=== PATIENT | female | born 1990 | race Caucasian/White ===

== ENCOUNTER 2018-09-13 14:50 | Emergency (ER) | payer BC, SELFPAY ==
[2018-09-13 15:33] LABS: Bilirubin Negative (Negative); Blood, Urine Negative (Negative); Clarity Clear (Clear); Glucose, Urine (Dipstick) Negative (Negative); Leukocyte Negative (Negative); Nitrite Negative (Negative); Protein, Urine (Dipstick) Negative (Neg-Trace); pH, Urine 7.5 (5.0-9.0)
[2018-09-13 15:34] LABS: Pregnancy Test - Urine (BHCG) POSITIVE (Negative)
[2018-09-13 15:35] LABS: Pregu Control Background? CLEAR/WHITE (CLR/WHITE); Pregu Control Bar Appear? YES (CONTROL BAR)
== END 2018-09-13 15:46 | disposition left against medical advice (07) ==
LOC: SCSER 14:50
DX: Z53.21 Procedure and treatment not carried out due to patient leaving prior to being seen by health care provider (principal)
CPT/HCPCS: 81003; 81025

== ENCOUNTER 2018-09-14 09:53 | Emergency (ER) | payer BC, SELFPAY ==
[2018-09-14 10:44] LABS: #Basophils 0.1 thou/uL (0.0-0.2); #Eosinphils 0.1 thou/uL (0.0-0.7); #Lymphocytes 1.9 thou/uL (1.20-3.40); #Monocytes 0.6 thou/uL (0.11-0.59); #Neutrophils 4.4 thou/uL (1.40-6.50); %Basophils 1.1 % (0.0-1.0); %Eosinophils 1.7 % (0.0-10.0); %Lymphocytes 26.7 % (21.0-51.0); %Monocytes 8.5 % (0.0-10.0); %Neutrophils 61.9 % (42.0-75.0); Hemoglobin 12.8 g/dL (12.0-16.0); Mean Corpuscular HGB CONC 34.7 g/dL (32.0-36.0); Mean Corpuscular Hemoglobin 32.1 pg (27.0-31.0); Mean Corpuscular Volume 92.4 fL (78.0-98.0); Mean Platelet Volume 7.7 fL (7.4-10.4); Platelet Count 289 thou/uL (130-400); RBC Distribution Width 11.6 % (11.5-14.5)
[2018-09-14 10:49] LABS: Bilirubin Negative (Negative); Blood, Urine Negative (Negative); Clarity Hazy (Clear); Glucose, Urine (Dipstick) Negative (Negative); Leukocyte Large (Negative); Nitrite Negative (Negative); Protein, Urine (Dipstick) Negative (Neg-Trace); Specific Gravity, Urine 1.025 (1.005-1.030); pH, Urine 5.5 (5.0-9.0)
[2018-09-14 10:55] LABS: Bacteria/HPF 3+ HPF (None Seen); Squamous Epithelial 21-50 HPF (0-3); WBC/HPF 21-50 HPF (0-3)
[2018-09-14 10:55] LABS: ALT (SGPT) 11 U/L (8-55); AST (SGOT) 15 U/L (5-34); Albumin 4.1 g/dL (3.5-5.0); Alkaline Phosphatase 55 U/L (40-150); Anion Gap 13 mmol/L (10-20); BUN (Urea Nitrogen) 9 mg/dL (7.0-18.7); Bilirubin, Total 0.5 mg/dL (0.2-1.2); Calc. Creatinine Clearance 0 mL/min (70-130); Calcium 9.1 mg/dL (7.8-10.44); Carbon Dioxide 20 mmol/L (22-29); Chloride 109 mmol/L (98-107); Estimated GFR-MDRD Greater than 90; Glucose 83 mg/dL (70-105); Potassium 3.4 mmol/L (3.5-5.1); Protein, Total 7.1 g/dL (6.0-8.3); Sodium 139 mmol/L (136-145)
--- NOTE | 2018-09-14 12:04 | ULT ---
PELVIC ULTRASOUND: Date; 09/14/18 HISTORY: Pelvic pain, positive beta HCG level of 461.5. FINDINGS: Multiple transabdominal and endovaginal sonographic images of the pelvis are obtained. The uterus demonstrates a normal sonographic appearance and measures 8.0 cm x 6.6 cm x 5.5 cm. The en dometrial stripe measures 1.9 cm in thickness. There is questionable very tiny anechoic area seen wit hin the endometrial canal, but this cannot be definitively determined to represent a gestational sac at this time. Endometrium is thickened for patient's age. The ovaries demonstrate a normal sonographic appearance bilaterally with the right ovary measuring 3 .1 cm x 2.8 cm x 1.7 cm, and the left ovary measures 3.1 cm x 2.5 cm x 1.6 cm. Doppler evaluation of each ovary with spectral analysis and color flow evaluation demonstrates arteri al flow in each ovary. There is evidence of a small amount of free fluid within the right adnexal region and adjacent to the right ovary. No adnexal mass is appreciated. IMPRESSION: 1. Thickened endometrium, but no definitive fluid collection is seen to suggest intrauterine gestati on at this time. Ectopic cannot be excluded based on this examination, but findings may be related to a very early intrauterine gestation. Continued follow-up pelvic ultrasound, as well as be ta HCG levels is recommended. 2. Free fluid in the right adnexal region. POS: [facility]
[2018-09-17 03:07] LABS: Chlamydia by PCR Not Detected (NotDetected); GC by PCR Not Detected (NotDetected)
== END 2018-09-14 12:55 | disposition home or self-care (01) ==
LOC: SCSER 09:53
DX: N30.00 Acute cystitis without hematuria (principal)
CPT/HCPCS: 76856; 80053; 81003; 81015; 84702; 85025; 87086; 87480; 87491; 87510; 87591; 87660

== ENCOUNTER 2018-09-17 18:29 | Emergency (ER) | payer SELFPAY | END 2018-09-17 19:06 | disposition home or self-care (01) | LOC: SCSER 18:29 | DX: J06.9 Acute upper respiratory infection, unspecified (principal) | CPT/HCPCS: 99281 ==

== ENCOUNTER 2018-09-22 17:20 | Emergency (ER) | payer SELFPAY | END 2018-09-22 19:47 | disposition home or self-care (01) | LOC: ERS 17:20 | DX: R04.0 Epistaxis (principal) | CPT/HCPCS: 99283 ==

== ENCOUNTER 2018-10-15 17:32 | Emergency (ER) | payer SELFPAY ==
[2018-10-15 18:10] LABS: #Basophils 0.1 thou/uL (0.0-0.2); #Lymphocytes 1.5 thou/uL (1.20-3.40); #Monocytes 0.4 thou/uL (0.11-0.59); #Neutrophils 5.9 thou/uL (1.40-6.50); %Basophils 0.8 % (0.0-1.0); %Eosinophils 0.4 % (0.0-10.0); %Lymphocytes 19.1 % (21.0-51.0); %Monocytes 4.9 % (0.0-10.0); %Neutrophils 74.8 % (42.0-75.0); Hemoglobin 12.2 g/dL (12.0-16.0); Mean Corpuscular HGB CONC 33.7 g/dL (32.0-36.0); Mean Corpuscular Hemoglobin 30.9 pg (27.0-31.0); Mean Corpuscular Volume 91.6 fL (78.0-98.0); Mean Platelet Volume 6.7 fL (7.4-10.4); Platelet Count 296 thou/uL (130-400); RBC Distribution Width 11.5 % (11.5-14.5); Red Blood Cell (RBC) Count 3.96 mill/uL (4.20-5.40); White Blood Cell (WBC) Count 7.9 thou/uL (4.8-10.8)
[2018-10-15] MEDS ORDERED: Metoclopramide HCl 10 MG/2 ML VIAL ONE (18:19)
[2018-10-15 18:25] LABS: ALT (SGPT) 12 U/L (8-55); AST (SGOT) 14 U/L (5-34); Albumin 4.1 g/dL (3.5-5.0); Alkaline Phosphatase 39 U/L (40-150); Anion Gap 12 mmol/L (10-20); BUN (Urea Nitrogen) 8 mg/dL (7.0-18.7); Bilirubin, Total 0.4 mg/dL (0.2-1.2); Calc. Creatinine Clearance 0 mL/min (70-130); Calcium 9.3 mg/dL (7.8-10.44); Carbon Dioxide 25 mmol/L (22-29); Chloride 105 mmol/L (98-107); Estimated GFR-MDRD Greater than 90; Globulin 3.2 g/dL (2.4-3.5); Glucose 92 mg/dL (70-105); Lipase 11 U/L (8-78); Potassium 3.9 mmol/L (3.5-5.1); Protein, Total 7.3 g/dL (6.0-8.3); Sodium 138 mmol/L (136-145)
[2018-10-15 18:37] LABS: Bilirubin Negative (Negative); Blood, Urine Negative (Negative); Glucose, Urine (Dipstick) Negative (Negative); Leukocyte Small (Negative); Nitrite Negative (Negative); Protein, Urine (Dipstick) Negative (Neg-Trace); Specific Gravity, Urine 1.015 (1.005-1.030); Urobilinogen 0.2 mg/dL (0.2-1.0); pH, Urine 7.5 (5.0-9.0)
[2018-10-15 18:44] LABS: Clarity Hazy (Clear)
[2018-10-15 18:45] LABS: Bacteria/HPF 1+ HPF (None Seen); RBC/HPF None Seen HPF (0-3)
[2018-10-15 18:46] LABS: Amphetamine Not Detected (NotDetected); Barbiturates Screen Not Detected (NotDetected); Benzodiazepine Screen Not Detected (NotDetected); Cocaine Metabolite Screen Not Detected (NotDetected); Medtox Control Line Valid? VALID (VALID); Methadone Not Detected (NotDetected); Methamphetamine Not Detected (NotDetected); Opiate Screen Not Detected (NotDetected); Oxycodone Screen Not Detected (NotDetected); Phencyclidine (PCP) Not Detected (NotDetected); THC/Cannabinoid Screen Not Detected (NotDetected); Tricyclic Screen Not Detected (NotDetected)
--- NOTE | 2018-10-15 21:16 | ULT ---
ULTRASOUND PELVIC WITH DOPPLER: 10/15/18 HISTORY: Pelvic pain. COMPARISON: Pelvic ultrasound 09/14/18. FINDINGS: Real time rosas scale, color doppler and spectral analysis of the pelvis was performed transabdominal approach. Mild dilatation of the arcuate vessels. The ovaries are normal with adequate vascular flow . There is a single viable intrauterine with heart rate documented at 175 beats per minute with average ultrasound age of 9 week, 2 day. Estimated date of delivery 05/18/19. There is a 2.2 cm subchorionic hemorrhage. The gestational sac appears normal as well as the pole. IMPRESSION: Single viable intrauterine with average ultrasound age of 9 week, 2 day. Estimated date of delivery 05/18/19 with small subchorionic hemorrhage. POS: [facility]
== END 2018-10-15 20:03 | disposition home or self-care (01) ==
LOC: SCSER 17:32
DX: O21.9 Vomiting of pregnancy, unspecified (principal); O23.41 Unspecified infection of urinary tract in pregnancy, first trimester; Z3A.09 9 weeks gestation of pregnancy
CPT/HCPCS: 36415; 76856; 80053; 80306; 81003; 81015; 83690; 85025; 93976; 96361; 96374; J2765

== ENCOUNTER 2018-11-27 18:33 | Emergency (ER) | payer MEDICAID ==
[2018-11-27 19:11] LABS: #Lymphocytes 1.9 thou/uL (1.20-3.40); #Monocytes 0.5 thou/uL (0.11-0.59); #Neutrophils 6.6 thou/uL (1.40-6.50); %Basophils 0.5 % (0.0-1.0); %Eosinophils 0.4 % (0.0-10.0); %Lymphocytes 20.7 % (21.0-51.0); %Monocytes 5.6 % (0.0-10.0); %Neutrophils 72.8 % (42.0-75.0); Hemoglobin 10.4 g/dL (12.0-16.0); Mean Corpuscular HGB CONC 35.5 g/dL (32.0-36.0); Mean Corpuscular Hemoglobin 32.2 pg (27.0-31.0); Mean Corpuscular Volume 90.6 fL (78.0-98.0); Mean Platelet Volume 6.3 fL (7.4-10.4); Platelet Count 285 thou/uL (130-400); RBC Distribution Width 12.6 % (11.5-14.5); Red Blood Cell (RBC) Count 3.22 mill/uL (4.20-5.40)
[2018-11-27 19:12] LABS: Bilirubin Negative (Negative); Blood, Urine Negative (Negative); Glucose, Urine (Dipstick) Negative (Negative); Leukocyte Moderate (Negative); Nitrite Negative (Negative); Protein, Urine (Dipstick) Negative (Neg-Trace); Urobilinogen 0.2 mg/dL (0.2-1.0)
[2018-11-27 19:23] LABS: ALT (SGPT) 11 U/L (8-55); AST (SGOT) 12 U/L (5-34); Albumin 3.5 g/dL (3.5-5.0); Alkaline Phosphatase 35 U/L (40-150); Anion Gap 13 mmol/L (10-20); BUN (Urea Nitrogen) 10 mg/dL (7.0-18.7); Bilirubin, Total 0.2 mg/dL (0.2-1.2); Calc. Creatinine Clearance 0 mL/min (70-130); Calcium 8.6 mg/dL (7.8-10.44); Carbon Dioxide 23 mmol/L (22-29); Chloride 106 mmol/L (98-107); Estimated GFR-MDRD Greater than 90; Globulin 2.8 g/dL (2.4-3.5); Glucose 82 mg/dL (70-105); Potassium 3.6 mmol/L (3.5-5.1); Protein, Total 6.3 g/dL (6.0-8.3); Sodium 138 mmol/L (136-145)
[2018-11-27 19:27] LABS: Clarity Hazy (Clear)
[2018-11-27 19:28] LABS: RBC/HPF None Seen HPF (0-3)
[2018-11-27 19:29] LABS: Bacteria/HPF 1+ HPF (None Seen)
== END 2018-11-27 21:40 | disposition home or self-care (01) ==
LOC: SCSER 18:33
DX: O99.89 Other specified diseases and conditions complicating pregnancy, childbirth and the puerperium (principal); R10.30 Lower abdominal pain, unspecified; Z3A.14 14 weeks gestation of pregnancy
CPT/HCPCS: 36415; 80053; 81003; 81015; 84702; 85025; 87086

== ENCOUNTER 2019-01-08 13:55 | Outpatient (CLI) | payer MEDICAID ==
--- NOTE | 2019-01-08 15:43 | ULT ---
ULTRASOUND OBSTETRICAL COMPLETE: 01/08/19 HISTORY: Z34.82, encounter for supervision of other normal , second trimester. Complete anatomy/size and dates. 28-year-old female. FINDINGS: number: Rinaldi. lie: Cephalic. Maternal cervix: 2.5 cm and closed. Placenta: Posterior. No placenta previa. Amniotic fluid volume: ESEQUIEL 12 cm. heart rate: Highly variable, 65-184 bpm The following anatomy is visualized, with no evidence of anomalies: Head, lateral ventricles, cerebellum, nose and lips, spine, upper limbs, lower limbs, four chamber he art, umbilical cord, cord insertion, stomach, kidneys, and bladder. biometry: Head circumference (HC): 18.7 cm 21w 0d Biparietal diameter (BPD): 4.9 cm 20w 5d Abdominal circumference (AC): 14.7 cm 20w 0d Femur length (FL): 3.5 cm 21w 1d Average ultrasound age (AUA): 20w 5d Estimated date of delivery (MELISSA): 05/23/2019. Last menstrual period (LMP): 08/10/2018. Gestational age by LMP: 21w 4d Estimated weight (EFW): 362 g +/- 53 g. (0 lb. 13 oz +/- 2 oz). IMPRESSION: 1. Live second trimester intrauterine gestation. 2. Estimated gestational age of 20 weeks, 5 days. 3. Cephalic lie. 4. No anatomical abnormalities. 5. Highly variable heart rate from 65 to 184 bpm. Recommend follow-up. jazmin [] POS: [facility]
== END 2019-01-08 13:56 | disposition home or self-care (01) ==
LOC: BICULT 13:55
PROVIDERS: ATTEND Family Medicine
DX: Z34.82 Encounter for supervision of other normal pregnancy, second trimester (principal); Z3A.20 20 weeks gestation of pregnancy
CPT/HCPCS: 76805

== ENCOUNTER 2019-02-06 21:32 | Emergency (ER) | payer OTHER ==
[2019-02-06 22:42] LABS: Bilirubin Negative (Negative); Blood, Urine Negative (Negative); Clarity Clear (Clear); Glucose, Urine (Dipstick) Negative (Negative); Leukocyte Trace (Negative); Nitrite Negative (Negative); Protein, Urine (Dipstick) Negative (Neg-Trace); Urobilinogen 0.2 mg/dL (Less than 2)
[2019-02-06 22:59] LABS: RBC/HPF 0-3 HPF (0-3)
[2019-02-06 23:00] LABS: Bacteria/HPF Rare-Few HPF (None Seen); Squamous Epithelial 0-3 HPF (0-3); Transitional Epithelial 0-3 HPF (None Seen); WBC/HPF 0-3 HPF (0-3)
[2019-02-06 23:02] LABS: #Basophils 0.1 thou/uL (0.0-0.2); #Lymphocytes 1.8 thou/uL (1.20-3.40); #Monocytes 0.6 thou/uL (0.11-0.59); #Neutrophils 7.6 thou/uL (1.40-6.50); %Basophils 0.5 % (0.0-1.0); %Eosinophils 0.4 % (0.0-10.0); %Monocytes 5.6 % (0.0-10.0); %Neutrophils 75.5 % (42.0-75.0); Hemoglobin 10.8 g/dL (12.0-16.0); Mean Corpuscular HGB CONC 34.5 g/dL (32.0-36.0); Mean Corpuscular Hemoglobin 32.5 pg (27.0-31.0); Mean Corpuscular Volume 94.2 fL (78.0-98.0); Mean Platelet Volume 6.4 fL (7.4-10.4); Platelet Count 273 thou/uL (130-400); RBC Distribution Width 11.2 % (11.5-14.5); Red Blood Cell (RBC) Count 3.32 mill/uL (4.20-5.40); White Blood Cell (WBC) Count 10.1 thou/uL (4.8-10.8)
[2019-02-06 23:17] LABS: ALT (SGPT) 7 U/L (8-55); AST (SGOT) 11 U/L (5-34); Albumin 3.4 g/dL (3.5-5.0); Alkaline Phosphatase 45 U/L (40-150); Anion Gap 11 mmol/L (10-20); BUN (Urea Nitrogen) 9 mg/dL (7.0-18.7); Bilirubin, Total 0.2 mg/dL (0.2-1.2); Calc. Creatinine Clearance 0 mL/min (70-130); Calcium 8.4 mg/dL (7.8-10.44); Carbon Dioxide 23 mmol/L (22-29); Chloride 108 mmol/L (98-107); Estimated GFR-MDRD Greater than 90; Globulin 3.1 g/dL (2.4-3.5); Glucose 86 mg/dL (70-105); Lipase 21 U/L (8-78); Protein, Total 6.5 g/dL (6.0-8.3); Sodium 138 mmol/L (136-145)
--- NOTE | 2019-02-10 14:58 | EKG ---
Test Reason : Blood Pressure : / mmHG Vent. Rate : 089 BPM Atrial Rate : 089 BPM P-R Int : 146 ms QRS Dur : 086 ms QT Int : 368 ms P-R-T Axes : 032 062 042 degrees QTc Int : 447 ms Normal sinus rhythm Normal ECG Confirmed by TREVOR HUTCHINSON DO ([id number]), website/blog editor OSEAS VALDEZ ([id number]) on 02/10/2019 2:58:08 PM Referred By: Confirmed By:TREVOR HUTCHINSON DO
== END 2019-02-07 00:42 | disposition home or self-care (01) ==
LOC: SCSER 21:32
DX: O99.89 Other specified diseases and conditions complicating pregnancy, childbirth and the puerperium (principal); R55 Syncope and collapse; Z3A.23 23 weeks gestation of pregnancy
CPT/HCPCS: 36415; 80053; 81003; 81015; 83690; 85025; 87086; 93005; 96360

== ENCOUNTER 2019-04-19 05:29 | Day surgery (SDC) | payer OTHER ==
[2019-04-19] MEDS ORDERED: Acetaminophen 500 MG TAB ONE (05:52)
[2019-04-19 06:06] LABS: Bilirubin Negative (Negative); Blood, Urine Negative (Negative); Clarity Clear (Clear); Glucose, Urine (Dipstick) Negative (Negative); Leukocyte Trace (Negative); Nitrite Negative (Negative); Protein, Urine (Dipstick) Negative (Neg-Trace); Urobilinogen 0.2 mg/dL (Less than 2)
[2019-04-19 06:14] LABS: Bacteria/HPF None Seen HPF (None Seen); RBC/HPF None Seen HPF (0-3); WBC/HPF 0-3 HPF (0-3)
[2019-04-19 06:17] LABS: #Basophils 0.1 thou/uL (0.0-0.2); #Eosinphils 0.1 thou/uL (0.0-0.7); #Lymphocytes 1.9 thou/uL (1.20-3.40); #Monocytes 0.6 thou/uL (0.11-0.59); #Neutrophils 4.3 thou/uL (1.40-6.50); %Lymphocytes 27.4 % (21.0-51.0); %Neutrophils 61.6 % (42.0-75.0); Hemoglobin 10.4 g/dL (12.0-16.0); Mean Corpuscular HGB CONC 34.9 g/dL (32.0-36.0); Mean Corpuscular Hemoglobin 31.7 pg (27.0-31.0); Mean Corpuscular Volume 90.7 fL (78.0-98.0); Mean Platelet Volume 6.6 fL (7.4-10.4); Platelet Count 239 thou/uL (130-400); Red Blood Cell (RBC) Count 3.29 mill/uL (4.20-5.40); White Blood Cell (WBC) Count 6.9 thou/uL (4.8-10.8)
[2019-04-19 06:24] LABS: ALT (SGPT) 13 U/L (8-55); AST (SGOT) 13 U/L (5-34); Albumin 3.2 g/dL (3.5-5.0); Alkaline Phosphatase 98 U/L (40-150); Anion Gap 13 mmol/L (10-20); BUN (Urea Nitrogen) 10 mg/dL (7.0-18.7); Bilirubin, Total 0.3 mg/dL (0.2-1.2); Calc. Creatinine Clearance 0 mL/min (70-130); Calcium 8.3 mg/dL (7.8-10.44); Carbon Dioxide 19 mmol/L (22-29); Chloride 111 mmol/L (98-107); Estimated GFR-MDRD Greater than 90; Glucose 84 mg/dL (70-105); Lipase 28 U/L (8-78); Protein, Total 6.2 g/dL (6.0-8.3); Sodium 139 mmol/L (136-145)
[2019-04-19] MEDS ORDERED: hydrALAZINE 20 MG/ML VIAL SLOW IVP PRN (08:56)
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
[2019-04-19 16:44] VITALS: BMI 25.4
== END 2019-04-19 10:25 | disposition home health service (06) ==
LOC: L&D/OP 05:29 → EDSTATUS 08:46 → L&D/OP 10:25
PROVIDERS: ATTEND Family Medicine
DX: O99.89 Other specified diseases and conditions complicating pregnancy, childbirth and the puerperium (principal); R10.30 Lower abdominal pain, unspecified; Z3A.36 36 weeks gestation of pregnancy
CPT/HCPCS: 80053; 81003; 81015; 83690; 85025

== ENCOUNTER 2019-05-02 11:00 | Day surgery (SDC) | payer OTHER ==
[2019-05-02 11:34] VITALS: BP 108/63; TEMP 98.1; BMI 26.2
[2019-05-02] MEDS ORDERED: hydrALAZINE 20 MG/ML VIAL SLOW IVP PRN (12:02)
--- NOTE | 2019-05-02 12:17 | PDOC.FPROB ---
FMR OB H&P: HPI - History of Present Illness History of Present Illness: 28 yo at 37.4 wks presents for vaginal discharge. MELISSA 05/17. Reports she first noticed white vaginal discharge this am. Denies vaginal itching, bleeding, LOF, dysuria. Reports lower abdominal cramps, discomfort. Has not been sexually active for months. No record available. Per patient, has appt with Gavin tomorrow and then will come to hospital for IOL for oligohydramnios. 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 History: No history of STDs - Surgical History Sx History: Appendectomy - Social History Social History: Denies tobacco, alcohol, drug use FMR OB H&P: Medications - Current Home Medications: Medication Instructions Recorded Confirmed Type Pnv No.95/Ferrous Fum/Folic AC 1 tablet PO DAILY 01/21/13 05/02/19 History [ Tablet] Allergies/Adverse Reactions: Allergies Allergy/AdvReac Type Severity Reaction Status Date / Time No Known Allergies Allergy Verified 05/02/19 11:35 FMR OB H&P: ROS - Review of Systems General: denies: fever/chills, weight/appetite/sleep changes Eyes: denies: vision changes, double vision ENT: denies: nasal congestion, rhinorrhea Cardiovascular: denies: chest pain, palpitation, edema Respiratory: denies: cough, shortness of breath Gastrointestinal: reports: cramping. denies: nausea, vomiting Genitourinary (Female): reports: vaginal discharge. denies: dysuria, vaginal pain, vaginal bleeding, contractions Musculoskeletal: reports: pain. denies: swelling Neurologic: denies: weakness, headache Integumentary: denies: itching, rash FMR OB H&P: Vital Signs - Maternal Vital signs: Vital Signs - First Documented Temp Pulse Resp BP 98.1 F 87 18 108/63 05/02/19 11:19 05/02/19 11:19 05/02/19 11:19 05/02/19 11:19 - Heart Tones Baseline: 150 Variability: moderate Deceleration: absent [place] contractions every: none FMR OB H&P: Physical Exam - Physical Exam General: awake, alert and oriented HEENT: normocephalic and atraumatic Heart: RRR, normal S1/S2, no murmurs/rubs/gallops, no edema General: CTAB, no respiratory distress Abdomen: soft, gravid, non-tender Skin: no rash, good tugor Lymphatic: no unusual bruising or bleeding Psychiatric: normal mood and affect - Pelvic Exam Vulva: normal hair distribution Cervix: no masses Deviation from normal: thick white discharge SVE: 10/19/ FMR OB H&P: A/P - Problem List (1) Vaginal discharge Status: Acute Code(s): N89.8 - OTHER SPECIFIED NONINFLAMMATORY DISORDERS OF VAGINA Discussion: Date/Time: 05/02/19 1217 Vaginal discharge - history and PE not consistent with ROM, and do not suspect STI with patient's history - VP3 done Pending VP3 results will likely discharge home This H&P was discussed with Dr. Lau who agree with the above documentation and plan. Addendum - Attending - Attending Attestation Date/Time: 05/03/19 0024 I personally evaluated the patient and discussed the management with Dr. Stone I agree with the History, Examination, Assessment and Plan documented above with any addition or exceptions noted below. Pt with vaginal discharge. Amnisure is neg. Pt has normal vitals. she has an appt tomorrow with primary OB dr Alonso. VP3 is negx3 discharge home f/u tomorrow as planned
--- NOTE | 2019-05-02 13:06 | PDOC.EVN ---
Event Note - Event Note Event Note: No concerns while monitoring on L&D. Patient prefers to return home and will follow up VP3 results. Patient discharged and return precautions given.
== END 2019-05-02 13:19 | disposition home or self-care (01) ==
LOC: L&D/OP 11:00
PROVIDERS: ATTEND Family Medicine
DX: O99.89 Other specified diseases and conditions complicating pregnancy, childbirth and the puerperium (principal); N89.8 Other specified noninflammatory disorders of vagina; Z3A.37 37 weeks gestation of pregnancy
CPT/HCPCS: 87480; 87510; 87660

== ENCOUNTER 2019-05-03 10:22 | Inpatient (IN) | payer OTHER ==
[~2019-05-03 10:22] MED LIST: Bupivacaine/Epinephrine 0.25% 30 ML VIAL ONE; Lidocaine 2% MPF 10 ML AMP (For Epidural Use) ONE
[2019-05-03 10:52] VITALS: BMI 25.7
[2019-05-03] MEDS ORDERED: Ibuprofen 800 MG TAB PO PRN (11:50)
[2019-05-03] MEDS ORDERED: Diphenoxylate HCl/Atropine Tablet PO PRN (11:50)
[2019-05-03] MEDS ORDERED: NS / Oxytocin 40 units/1000ml 1,000 ML IV PRN (11:50)
[2019-05-03] MEDS ORDERED: HYDROcodone/Acetaminophen 5/325 mg Tablet PO PRN ×3 (11:50→19:25)
[2019-05-03] MEDS ORDERED: Carboprost 250 MCG/ML AMP IM PRN (11:50)
[2019-05-03] MEDS ORDERED: hydrALAZINE 20 MG/ML VIAL SLOW IVP PRN ×2 (11:50→19:22)
[2019-05-03] MEDS ORDERED: Promethazine HCl 25 MG/ML VIAL IM PRN ×3 (11:50→19:22)
[2019-05-03] MEDS ORDERED: Methylergonovine 0.2 MG/ML VIAL IM PRN (11:50)
[2019-05-03] MEDS ORDERED: Lidocaine 1% (PF) 30 ML VIAL SC PRN (11:50)
[2019-05-03] MEDS ORDERED: Ondansetron PF 4 MG/2 ML Vial IVP PRN ×3 (11:50→19:22)
[2019-05-03] MEDS ORDERED: Misoprostol 200 MCG TAB PR PRN (11:50)
[2019-05-03] MEDS ORDERED: Butorphanol Tartrate 1 MG/ML VIAL SLOW IVP PRN (11:50)
[2019-05-03] MEDS ORDERED: Lactated Ringer's 1,000 ML IV SCH (12:00)
[2019-05-03] MEDS ORDERED: NS w/ Oxytocin 10 units 500 ML ONE (12:00)
[2019-05-03] MEDS ORDERED: NS w/ Oxytocin 10 units 500 ML IV SCH ×2 (12:00)
[2019-05-03 12:10] LABS: Hemoglobin 10.9 g/dL (12.0-16.0); Mean Corpuscular HGB CONC 34.2 g/dL (32.0-36.0); Mean Corpuscular Hemoglobin 30.3 pg (27.0-31.0); Mean Corpuscular Volume 88.6 fL (78.0-98.0); Mean Platelet Volume 7.2 fL (7.4-10.4); Platelet Count 250 thou/uL (130-400); RBC Distribution Width 11.1 % (11.5-14.5); Red Blood Cell (RBC) Count 3.59 mill/uL (4.20-5.40); White Blood Cell (WBC) Count 8.9 thou/uL (4.8-10.8)
[2019-05-03 12:52] LABS: HBSAg Index 0.14 S/CO (0-0.99); Hep B Surf Ag Non-Reactive S/CO (NonReactive); Syphilis Antibody Nonreactive (Nonreactive); Syphilis Antibody Index 0.04 S/CO (<1.00 Non-Reactive)
[2019-05-03] MEDS ORDERED: Fentanyl 4 mcg/Bup 0.1% Cadd 100 ML ONE (14:32)
[2019-05-03] MEDS ORDERED: Naloxone HCl 0.4 mg/ml Vial IVP PRN ×2 (15:27)
[2019-05-03] MEDS ORDERED: diphenhydrAMINE 50 MG/ML VIAL IVP PRN (15:27)
[2019-05-03] MEDS ORDERED: Lactated Ringer's 500 ML IV PRN (15:27)
[2019-05-03] MEDS ORDERED: Acetaminophen 325 MG TAB PO PRN (15:27)
[2019-05-03] MEDS ORDERED: ePHEDrine/0.9% NaCl/PF SYRINGE 50 mg/10 ml SLOW IVP PRN (15:27)
[2019-05-03] MEDS ORDERED: Communication Order-Pharmacy FS SCH (15:30)
[2019-05-03] MEDS ORDERED: Fentanyl 4 mcg/Bupivacaine 0.1% Cassette 100 ML EPIDURAL SCH (15:30)
[2019-05-03] MEDS ORDERED: diphenhydrAMINE 25 MG CAP PO PRN (19:22)
[2019-05-03] MEDS ORDERED: Preparation H Ointment 28 GM TUBE PR PRN (19:22)
[2019-05-03] MEDS ORDERED: Bisacodyl 10 MG SUPP PR PRN (19:22)
[2019-05-03] MEDS ORDERED: Milk Of Magnesia 30 ML UDCUP PO PRN (19:22)
[2019-05-03] MEDS ORDERED: Lanolin Ointment 7 GM TUBE TOP PRN (19:22)
[2019-05-03] MEDS ORDERED: Benzocaine-Menthol 82.5 ML CAN TOP PRN (19:22)
[2019-05-03] MEDS ORDERED: NS / Oxytocin 40 units/1000ml 1,000 ML IV SCH (19:22)
[2019-05-03] MEDS: Ibuprofen 800 MG TAB PO SCH (22:31)
[2019-05-03] MEDS: Docusate Calcium (SURFAK) 240 MG CAP PO SCH (22:32)
[2019-05-03] MEDS ORDERED: Sodium Chloride 0.9% 10 ML ONE (23:54)
[2019-05-04] MEDS: Ibuprofen 800 MG TAB PO SCH ×3 (05:45→16:52)
[2019-05-04 06:11] LABS: Hemoglobin 10.2 g/dL (12.0-16.0); Mean Corpuscular HGB CONC 34.5 g/dL (32.0-36.0); Mean Corpuscular Hemoglobin 31.1 pg (27.0-31.0); Mean Corpuscular Volume 90.1 fL (78.0-98.0); Mean Platelet Volume 7.5 fL (7.4-10.4); Platelet Count 225 thou/uL (130-400); RBC Distribution Width 11.2 % (11.5-14.5); Red Blood Cell (RBC) Count 3.28 mill/uL (4.20-5.40); White Blood Cell (WBC) Count 10.4 thou/uL (4.8-10.8)
[2019-05-04] MEDS: Ferrous Sulfate 325 MG TAB PO SCH ×2 (08:55→17:22)
[2019-05-04] MEDS ORDERED: Adacel (T-DAP) 0.5 ML SYRINGE IM ONE (09:00)
[2019-05-04] MEDS ORDERED: Prenatal Vitamin 1 TAB PO SCH (09:00)
[2019-05-04] MEDS: Docusate Calcium (SURFAK) 240 MG CAP PO SCH (10:30)
[2019-05-04 16:15] VITALS: BP 117/73; TEMP 98.5
== END 2019-05-04 19:20 | disposition home or self-care (01) | DRG 807 ==
LOC: L&D/OP 10:22 → L&D 11:50 → 3SW 21:07
PROVIDERS: ADMIT Family Medicine; ATTEND Family Medicine
PROC: 10E0XZZ Delivery of Products of Conception, External Approach (ICD-10-PCS; principal; 2019-05-03)
DX: O80 Encounter for full-term uncomplicated delivery (principal); Z37.0 Single live birth; Z3A.38 38 weeks gestation of pregnancy
CPT/HCPCS: 36415; 85027; 86780; 86850; 86900; 86901; 87340; 87480; 87510; 87660; J2001; J2590

== ENCOUNTER 2020-04-04 07:04 | Outpatient (CLI) | payer OTHER ==
--- NOTE | 2020-04-04 07:48 | ULT ---
Obstetric sonogram HISTORY: evaluation. Second trimester gestation. FINDINGS: Single intrauterine gestation in transverse presentation. Amniotic fluid is within normal l imits.. Cervix is closed and 3.6 cm. Grade 0 placenta is anterior. No gross intracranial abnormalities. spine and kidneys are intact as visualized. Three-vessel cord shows a normal insertion. Four-chamber heart motion at 155 bpm. Measurements are as follows: Biparietal diameter 20 weeks 0 days Head circumference 20 weeks 5 days Abdominal circumference 20 weeks 6 days Femur length 21 weeks 0 days [place] 27th percentile. Estimated date of delivery based on today's sonogram 08/17/2020. IMPRESSION : Single viable intrauterine gestation. Estimated gestational age 20 weeks 5 days. No abnormalities are demonstrated.
== END 2020-04-04 07:05 | disposition home or self-care (01) ==
LOC: BICULT 07:04
PROVIDERS: ATTEND Family Medicine
DX: Z34.82 Encounter for supervision of other normal pregnancy, second trimester (principal); Z3A.20 20 weeks gestation of pregnancy
CPT/HCPCS: 76805

== ENCOUNTER 2020-06-16 23:27 | Day surgery (SDC) | payer OTHER ==
[2020-06-16 23:57] VITALS: BP 98/57; TEMP 98.4; BMI 27.3
[2020-06-17] MEDS ORDERED: hydrALAZINE 20 MG/ML VIAL SLOW IVP PRN
[2020-06-17 01:09] LABS: Bacteria/HPF None Seen HPF (None Seen); Bilirubin Negative (Negative); Blood, Urine Negative (Negative); Clarity Clear (Clear); Glucose, Urine (Dipstick) Normal (Negative); Ketone, Urine 40 mg/dL (Negative); Leukocyte Negative Leu/uL (Negative); Nitrite Negative (Negative); Protein, Urine (Dipstick) Negative (Neg-Trace); RBC/HPF 0-3 HPF (0-3); Specific Gravity, Urine 1.018 (1.002-1.036); Squamous Epithelial None Seen HPF (0-3); Urobilinogen Normal mg/dL (Less than 2); WBC/HPF 0-3 HPF (0-3); pH, Urine 6.5 (5.0-9.0)
[2020-06-17 01:11] LABS: Urine Culture Reflex No No
[2020-06-17] MEDS ORDERED: Betamet Acet/Betamet Na Ph 30 MG/5 ML VIAL IM SCH (01:15)
--- NOTE | 2020-06-17 01:34 | PDOC.LDHP ---
Labor and Delivery H&P Chief complaint: abdominal pain HPI: 29yo @ 31.4 presents for lower pelvic pain and cramping. Pt was seen at [facility] on Friday for similar sxs and was found to be 2cm dilated and told to follow up with PCP. She saw Dr. Alonso in office yesterday, was 2cm and given dose of steroids for lung maturity and was told to present to L&D later this morning for second dose. She denies any CP, SOB, n/v, fever/chills, VB or LOF. Endorses good movement. Admits to increased, white vaginal discharge, no burning/itching. Awoke tonight at 2200 with cramping and pressure, did not resolve with tylenol. Current gestational age (weeks): 31 (31.4) Grav: 6 Para: 4 (4014) OB History Details: Denies any complications in previous pregnancies. States daughter who was born last year required resuscitation at but did not require NICU stay and has no developmental delays. Denies any DM and HTN in prior pregnancies. Current complications: none Past Medical History: Denies Current medications: pre-yao vitamins Previous surgical history: appendectomy Allergies/Adverse Reactions: Allergies Allergy/AdvReac Type Severity Reaction Status Date / Time No Known Allergies Allergy Verified 06/16/20 23:49 Social history: none - Physical Exam Vital signs reviewed and normal: yes General: NAD, resting Heart: RRR Lungs: CTAB Abdomen: gravid Extremeties: no edema FHT: category 1 (accels, no deccels, moderate variability) [place] contractions every: none - Vaginal Exam cm dilated: 2 Effacement: 25% (30) Station: -3 - Assessment 29yo @ 31.4 presents for lower pelvic pain and cramping. # labor r/o - SVE 2cm in office earlier in the day with Dr. Alonso and earlier in the week at [facility] triage - Unable to perform FFN due to digital exam in past 24 hours - Given first Celestone in office at approx 10am on 06/16 - SVE /-3 - Cat 1 FHT without ctx - UA clean - Obtained VP3 due to increased vaginal discharge - Given second steroid dose for lung maturity PCP: Gavin Dispo: SVE unchanged from prior. Reassuring FHT. Given 2nd steroid dose. Instru cted to call back in AM for VP3 results. Discussed results with patient, discharge home with labor precautions. Voiced understanding and agreement, eager to go home. F/u with Dr. Alonso as previously directed. Above plan discussed with Dr. Lau who agreed with plan and documentation. Addendum - Attending - Attending Attestation Date/Time: 06/18/20 [id number] I personally evaluated the patient and discussed the management with Dr. Anne I agree with the History, Examination, Assessment and Plan documented above with any addition or exceptions noted below. Pt reports she was scheduled to come into L&D for second dose of bmtz around 10am. Will give now. Abdomen soft nttp. sve unchanged no evidence of labor Labs reviewed [employer]# positive for BV. Pt called and results communicated. Metronidazole 500mg po bid #14 sent.
== END 2020-06-17 01:40 | disposition home or self-care (01) ==
LOC: L&D/OP 23:27
PROVIDERS: ATTEND Family Medicine
DX: O99.891 Other specified diseases and conditions complicating pregnancy (principal); R10.30 Lower abdominal pain, unspecified; Z3A.31 31 weeks gestation of pregnancy
CPT/HCPCS: 81001; 87480; 87510; 87660; 96372; 99284; J0702

== ENCOUNTER 2020-06-18 22:17 | Day surgery (SDC) | payer OTHER ==
[2020-06-18 22:53] VITALS: BMI 26.4
[2020-06-18] MEDS ORDERED: hydrALAZINE 20 MG/ML VIAL SLOW IVP PRN (23:32)
[2020-06-18] MEDS ORDERED: metroNIDAZOLE 500 MG TAB PO SCH (23:45)
[2020-06-19] MEDS ORDERED: hydrALAZINE 20 MG/ML VIAL SLOW IVP PRN (07:32)
--- NOTE | 2020-06-19 08:01 | PRG ---
DATE OF SERVICE: 06/18/2020 PRIMARY SENIOR TALENT MANAGEMENT CONSULTANT: Vargas Alonso MD CHIEF COMPLAINT: Brown vaginal discharge. HISTORY OF PRESENT ILLNESS: The patient is a 29-year-old G6, P4 female with an intrauterine at 31 weeks and 5 days, presenting to Labor and Delivery with complaints of brown discharge that she noticed at work today. Of note, the patient was called earlier this afternoon with diagnosis and lab results from VP3 that was done the day previous and also at presentation to Labor and Delivery with a diagnosis of bacterial vaginosis. Metronidazole was called into her pharmacy, but had not been picked up yet. The patient denies any vaginal bleeding, leakage of fluid, contractions. She denies fever, cough, headache, chest pain, shortness of breath, nausea, vomiting, diarrhea, or constipation. She denies any new rashes, hip problems, knee problems, muscle weakness. PAST MEDICAL HISTORY: Negative. PAST SURGICAL HISTORY: Appendectomy. ALLERGIES: NO KNOWN DRUG ALLERGIES. MEDICATIONS: vitamins. SOCIAL HISTORY: Denies drug, alcohol, tobacco use. OB LABS: Unavailable at time of dictation. REVIEW OF SYSTEMS: Per HPI. PHYSICAL EXAMINATION: VITAL SIGNS: Blood pressure 99/57, heart rate of 103, respiratory rate 18, temperature 98.2. GENERAL: She appears to be in no acute distress. She is alert, oriented, cooperative, and pleasant to interact with. HEAD: Normocephalic, atraumatic. LUNGS: Clear to auscultation bilaterally. HEART: Regular rate and rhythm. ABDOMEN: Gravid, soft, nontender. EXTREMITIES: Nontender, nonedematous. GENITALIA: Vulva is without masses, lesions, or erythema. Vagina is moist. She does have slightly off color discharge reminiscent of bacterial vaginosis. Cervix is visibly closed. No other concerning discharge on digital exam. Cervix is also unchanged at 2, 50 and -2 station. heart tracing shows the fetus with a baseline in the 140s with moderate long-term variability, positive accelerations, no decelerations. ASSESSMENT AND PLAN: The patient is a 29-year-old female, multiparous, with an intrauterine at 32 weeks and 0 days, presenting with brown discharge, consistent and congruent with previous diagnosis of bacterial vaginosis. The patient has been given her first dose of metronidazole here in Labor and Delivery and is planning on picking up her prescription tomorrow. Fetus has a category 1 tracing and reactive NST. Of note, she is status post steroids given her cervical dilation at 32 weeks, but is without any signs of labor. Job ID: [id number]
== END 2020-06-19 00:11 | disposition home or self-care (01) ==
LOC: L&D/OP 22:17
PROVIDERS: ATTEND Family Medicine
DX: O23.593 Infection of other part of genital tract in pregnancy, third trimester (principal); B96.89 Other specified bacterial agents as the cause of diseases classified elsewhere; Z3A.32 32 weeks gestation of pregnancy
CPT/HCPCS: 99283

== ENCOUNTER 2020-06-30 22:07 | Day surgery (SDC) | payer OTHER ==
[2020-06-30 22:44] VITALS: BMI 25.4
[2020-06-30] MEDS ORDERED: hydrALAZINE 20 MG/ML VIAL SLOW IVP PRN (22:45)
--- NOTE | 2020-06-30 22:49 | PDOC.FPROB ---
FMR OB H&P: HPI - History of Present Illness Chief Complaint: CTX Indentification: 29yo at 33.4wks History of Present Illness: 29yo at 33.4wks presents for back pain that started yesterday, tried taking tylenol but no relief. Back pain has now worsened. Denies dysuria, VB, LOF, edema, [place], vision changes. Endorses FM. Some increased clear discharge but denies odor or irritation. She received steroids 3 wks ago for contractions and dilation of 2cm. This feels different than the contractions she was having at that time. Has hx of delivery as early as 36wks. Primary Care Physician: Dr Alonso FMR OB H&P: Current - Care : 6 Para: 4014 Gestational age: 33.4wks Due date: 08/14/20 Course/Complications: CTX and cervical dilation 2cm for which she received steroids 3wks ago in office. - OB Labs Blood type: B RH: positive Antibody Screen: negative HIV: negative HepBsAg: negative Rubella: immune Gonorrhea: negative Chlamydia: negative 1 hour gtt: Has not had GTT FMR OB H&P: History - Past Medical History PMH: Denies - OB History OB History: 4 SVDs. 1st at 38wks 2nd at 36wks 3rd at 36wks 4th at 38wks for oligo SAB in 2018 - Surgical History Sx History: Appendectomy - Social History Social History: Denies tobacco, alcohol, and drug use - Family History Family History: Cervical cancer in mother FMR OB H&P: Medications - Current Home Medications: Medication Instructions Recorded Confirmed Type Pnv No.95/Ferrous Fum/Folic AC 1 tablet PO DAILY #90 tablet 05/04/19 06/18/20 Rx [ Tablet] Acetaminophen [Tylenol] 1,000 mg PO Q6HR PRN 06/16/20 06/18/20 History Allergies/Adverse Reactions: Allergies Allergy/AdvReac Type Severity Reaction Status Date / Time No Known Allergies Allergy Verified 06/30/20 22:36 FMR OB H&P: ROS - Review of Systems General: denies: fever/chills, fatigue Eyes: denies: eye pain, vision changes ENT: denies: nasal congestion, rhinorrhea Respiratory: denies: cough, congestion, shortness of breath Gastrointestinal: reports: nausea, vomiting Genitourinary (Female): reports: other (back pain). denies: dysuria, vaginal bleeding, contractions Musculoskeletal: reports: pain. denies: swelling Neurologic: denies: weakness, headache Integumentary: denies: rash, lesions FMR OB H&P: Vital Signs - Maternal Vital signs: HR: 111 BP: 111/69 Temp: 98.3 RR: 16 - Heart Tones Baseline: 150 Variability: moderate Acceleration: present Deceleration: absent Category: category 1 [place] contractions every: Rare FMR OB H&P: Physical Exam - Physical Exam General: NAD, awake, alert and oriented HEENT: normocephalic and atraumatic, conjunctiva clear, grossly normal hearing Neck: supple, trachea midline Heart: RRR, no murmurs/rubs/gallops General: CTAB, no respiratory distress, no rales/rhonchi, no wheezing, no retractions Abdomen: soft, gravid, non-tender, bowel sound present Musculoskeletal: pulses present, no misalignment/asymmetry, no atrophy Neurological: no focal deficit Skin: no rash, good tugor Lymphatic: no purpura Psychiatric: intact recent and remote memory, good judgement and insight, normal mood and affect - Pelvic Exam Vulva: normal hair distribution, no lesions, no blood SVE: /-3 Membranes: Intact FMR OB H&P: A/P Disposition: 29yo at 33.4wks sIUP - SVE /-3. Documented /-2 on 06/19 - Ts Cat 1. - Hx of labor x2 at 36wks. Has received steroids this 3wks ago. No CVA tenderness, not picking up contractions on toco. Recent urine culture in office 06/26 neg and denies urinary symptoms. Will treat nausea and vomiting with Unisom and Vit B6, she has a ride home and declined Zofran. Plan to recheck in 2 hours to evaluate for labor. - Recommend GTT outpt if she discharges home, she has not had this yet. Discussion: Date/Time: 06/30/20 2422 This H&P was discussed with Dr. Lagos who agrees with the above documentation and plan.
[2020-06-30] MEDS ORDERED: pyridOXINE 50 MG (B6) TAB PO SCH (23:15)
[2020-06-30] MEDS ORDERED: Doxylamine 25 MG TAB PO SCH (23:15)
--- NOTE | 2020-06-30 23:55 | PDOC.BPN ---
- Brief Progress Note OBGYN: Dispo: Here with Dr Gentile at bedside Clinically stable Dr Gentile for recheck of CX as patient would like to go home if able before the 2 hrs Vitals ok Recheck /3 Lives in [place], [place]. Patient is comfortable going home. we reviewed with her POC and that we do not suspect PTL at this time but it may start anytime. She is to have strict follow up Friday.
--- NOTE | 2020-07-01 00:57 | HP ---
TIME: 2338. TIME OF EVALUATION: About 2314. LOCATION: Labor and Delivery. This is a patient of Dr. Alonso. CHIEF COMPLAINT: 1. Back pain at 33 weeks. 2. Some pelvic pain in the lower pelvis. 3. Nausea, vomiting since arrival to Labor and Delivery. HISTORY OF PRESENT ILLNESS: This is a 29-year-old G6, P4, who is at 33 weeks and 4 days by stated due date. She was actually given steroids by Dr. Alonso at his clinic about 3 weeks ago because she was about 2 cm back then and they gave her steroids in case she was going to deliver early. She arrives here with a complaint of some back pain, but no real contractions. She denies any leakage of fluid or vaginal bleeding. She decided to come in and get checked because of back pain. She was not sure if they were contractions or not. She also has a little bit of mild pelvic pressure in the front, but that has pretty much not changed from before. She also had some nausea and vomiting when she first arrived here in Labor and Delivery, but this has been an acute issue since arrival and has not been a chronic problem. REVIEW OF SYSTEMS: Complete review of systems was checked and is otherwise negative unless specified in the HPI. GENERAL: She denies fever, chills, or shortness of breath. CHEST: No chest pain. RESPIRATORY: No shortness of breath. No cough. GI: No diarrhea, no constipation. : No dysuria or frequency. OB: Good movement. PAST MEDICAL HISTORY: Negative. PAST SURGICAL HISTORY: She had an appendectomy in the past. OBSTETRICAL HISTORY: Significant for vaginal deliveries only and no C-sections. She does have a history of 2 previous births at about 36 weeks. Last delivery was at 38 weeks and it was an induction for oligohydramnios. Currently, she is 33 weeks and 4 days and she states that she has not yet had her 1-hour glucose tolerance test. MEDICATIONS: None except for prenatals. ALLERGIES: NONE. SOCIAL HISTORY: Negative for alcohol, tobacco, and drug use. PHYSICAL EXAMINATION: GENERAL: She is in no acute distress. VITAL SIGNS: She does have a blood pressure which is 111/69, heart rate was 111, and her temperature is 98.3. ABDOMEN: Soft and nontender. BACK: No real costovertebral angle tenderness. PELVIC: No gross evidence of leakage of fluid or ruptured membranes. Cervical exam reveals a cervix that has 3 cm dilation, 40% effaced, -3 station, and that is by Dr. Beverley Gentile. Previous exam was that she was about 2 cm based on the report. On the nonstress test, nonstress test was ordered as she is 33 weeks with a complaint of back pain. Nonstress test reveals a heart rate baseline that was about 140 to 150 on arrival and now she is having some prolonged accelerations up to about 160 or so, but there is moderate variability and no pathological decelerations. I do not see any real contraction pattern on tocodynamometer, so for right now her nonstress test, despite the accelerations up to 160, is reactive. Interventions given. Vitamin B6 and Unisom were given for nausea and vomiting as she declined Zofran. ASSESSMENT: This is a 29-year-old G6, P4, at 33 weeks and 4 days, with steroids given about 3 weeks ago with threatened labor versus other. She also has nausea and vomiting on arrival, but has just received medication for that. PLAN: 1. The patient received steroids 3 weeks ago so, per ACOG, we can give her a rescue dose if we think that she is at imminent risk for delivery as she is still under 34 weeks, but as of right now I do not think that she is actively laboring because she looks clinically well, but she is still in labor observation. 2. We will plan for at least 2 hours of observation. 3. The nonstress test was reviewed by me and Dr. Gentile and feel that the rise in the baby's heart beat to the 160s are just periods of acceleration. She is afebrile with no costovertebral angle tenderness, so I do not feel that she is systemically ill or has pyelonephritis clinically. 4. We will continue to follow her and observe her for now and if she is unchanged, we may just send her home with close outpatient followup, but if there is any concern for labor, we may watch her overnight. Job ID: [id number]
== END 2020-07-01 00:05 | disposition home or self-care (01) ==
LOC: L&D/OP 22:07
PROVIDERS: ATTEND Family Medicine
DX: O47.03 False labor before 37 completed weeks of gestation, third trimester (principal); O99.891 Other specified diseases and conditions complicating pregnancy; M54.5 Low back pain; R10.2 Pelvic and perineal pain; O21.2 Late vomiting of pregnancy; O09.213 Supervision of pregnancy with history of pre-term labor, third trimester; Z3A.33 33 weeks gestation of pregnancy
CPT/HCPCS: 99283

== ENCOUNTER 2020-07-08 01:43 | Day surgery (SDC) | payer OTHER ==
[2020-07-08 02:21] VITALS: BMI 25.7
[2020-07-08] MEDS ORDERED: hydrALAZINE 20 MG/ML VIAL SLOW IVP PRN (03:03)
[2020-07-08 03:07] LABS: Amnisure Test No Membranes Rupture (No Rupture)
[2020-07-08 03:08] LABS: Amnisure Internal Control QC ACCEPTABLE (ACCEPTABLE)
--- NOTE | 2020-07-08 03:18 | PDOC.FPROB ---
FMR OB H&P: HPI - History of Present Illness Chief Complaint: vaginal d/c History of Present Illness: 29 y/o @ 34.5 weeks presents to L&D with increase in vaginal discharge. Pt states she is concerned her membranes ruptured and that the discharge might be fluids leaking. She has not noticed soaking of pad or clothing. This started at 11 AM on 07/07. Characterized as thick, clear. Denies vaginal itching, irritation, foul odor to d/c. Denies vaginal bleeding. denies any sudden gush of vaginal lof. random ctx throughout the day, nothing consistent. Not painful. PT states she has noticed decreased movements today. Hx of PTD X2 @ 35 and 36 weeks. PCP: Gavin. Primary Care Physician: Gavin FMR OB H&P: Current - Care : 6 Para: 2214 Gestational age: 34 and 5 days Due date: 08/14/20 Dating Criteria: LMP c/w 6.6 wk sono Course/Complications: received steroids X2 @ 32 weeks for labor. - OB Labs Blood type: B RH: positive Antibody Screen: negative HIV: negative RPR: negative HepBsAg: negative Rubella: immune Urine drug screen: negative Gonorrhea: negative Chlamydia: negative Pap Smear: normal 01/07/20 FMR OB H&P: History - Past Medical History PMH: Bipolar anxiety - OB History OB History: Preg #1: @ 37 weeks 8 lbs 12 oz, 02/03/13 Preg #2: @ 35 weeks 6 lbs 9 oz, 10/25/14 Preg #3: @ 36 weeks 6 lbs 4 oz, 02/10/17 Preg #4: Sp AB Preg #5: @ 37 weeks 5 lbs 05/03/19 current : received steroids at 32 weeks due to premature ctx and PTL. 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 Healthy children, no known medical concerns. FMR OB H&P: Medications - Current Home Medications: Medication Instructions Recorded Confirmed Type Pnv No.95/Ferrous Fum/Folic AC 1 tablet PO DAILY #90 tablet 05/04/19 06/18/20 Rx [ Tablet] Acetaminophen [Tylenol Extra 1,000 mg PO Q6HR PRN 06/16/20 06/18/20 History Strength] Allergies/Adverse Reactions: Allergies Allergy/AdvReac Type Severity Reaction Status Date / Time No Known Allergies Allergy Verified 06/30/20 22:36 FMR OB H&P: ROS - Review of Systems General: denies: fever/chills, weight/appetite/sleep changes Eyes: denies: eye pain, vision changes, scotomas ENT: denies: nasal congestion, rhinorrhea, sore throat Cardiovascular: reports: palpitation. denies: chest pain, edema Respiratory: reports: shortness of breath (when lying flat). denies: cough, congestion Gastrointestinal: denies: abdominal pain, cramping, nausea, vomiting, diarrhea Genitourinary (Female): reports: vaginal discharge, contractions (random). denies: dysuria, hematuria, hesitancy, vaginal pain, vaginal bleeding Musculoskeletal: denies: pain, arthritis/arthralgias Neurologic: denies: syncope, seizures Integumentary: denies: itching, rash Endocrine: denies: polydipsia, polyuria Hematologic/Lymphatic: denies: prolonged or excessive bleeding Psychological: reports: anxiety, other (bipolar d/o hx) FMR OB H&P: Vital Signs - Maternal Vital signs: 99/58 BP 100 HR 98.8 Temp 16 RR 99% on RA - Heart Tones Baseline: 130 Variability: moderate Acceleration: present Deceleration: absent [place] contractions every: none FMR OB H&P: Physical Exam - Physical Exam General: NAD, awake, alert and oriented HEENT: normocephalic and atraumatic, PERRLA, EOMI, MMM, no scleral icterus, grossly normal vision, grossly normal hearing Neck: supple, FROM, trachea midline, no JVD Chest: non-tender to palpation Breast: symmetric Heart: RRR, normal S1/S2, no murmurs/rubs/gallops, pulses present, no edema General: CTAB, no respiratory distress, good air movement, no rales/rhonchi, no wheezing, no retractions Abdomen: soft, gravid, non-tender, bowel sound present Musculoskeletal: normal gait and station, pulses present Neurological: sensation to pain,touch and proprioception grossly normal, no clonus, no tremor, no focal deficit Skin: no rash, good tugor, capillary refill <2 seconds Lymphatic: no unusual bruising or bleeding, no purpura Psychiatric: intact recent and remote memory, good judgement and insight, normal mood and affect - Pelvic Exam Vulva: normal hair distribution SVE: /-2 FMR OB H&P: Results - Labs Lab results: Laboratory Results - last 24 hr 07/08/20 02:50 Amnio Swab Test No Membranes Rupture FMR OB H&P: A/P - Problem List (1) Decreased movement Status: Acute Code(s): O36.8190 - DECREASED MOVEMENTS, UNSP TRIMESTER, UNSP (2) Vaginal discharge Status: Acute Code(s): N89.8 - OTHER SPECIFIED NONINFLAMMATORY DISORDERS OF VAGINA Discussion: Date/Time: 07/08/20 0316 29 y/o @ 34.5 weeks presents with thick vaginal d/c with concern for ROM since 11 AM on 07/07. 1. sIUP @ 34.5 weeks - TOCO and FHT while in obs. - SVE: 2 2. Vaginal discharge - amnisure negative - SSE: no pooling of fluid on valsalva from os. thick clear vaginal discharge. no foul odor. nml vulva. - With nml SSE and neg amnisure, very low probability of ROM. planning d.c home with return precautions. 3. Hx of PTL with PTD - received steroids X2 @ 32 weeks due to PTL. Dilated to 2 cm @ 32 weeks with ctx. - no consistent ctx while in obs. no significant cervical change since check by Dr. Lagos 2 weeks ago. 4. Decreased movements today - NST ordered: reactive strip, 130 baseline with mod variability, and accels, no decels. Dispo: d/c home with return precautions. This H&P was discussed with Dr. Lau who agree with the above documentation and plan. Addendum - Attending - Attending Attestation Date/Time: 07/10/20 1773 I personally evaluated the patient and discussed the management with Dr. Louise I agree with the History, Examination, Assessment and Plan documented above with any addition or exceptions noted below. Pt presenting with change in discharge and decreased movement. SVE slowly advancing over weeks. sve 4cm and unchanged from last check. no evidence of rom. discharge likely mucus from the cervix being dilated. reassurance given. has f/u with Dr Alonso in the coming days.
[2020-07-08] MEDS ORDERED: Acetaminophen 500 MG TAB PO PRN (03:50)
[2020-07-08] MEDS ORDERED: FLU VACC QS2020-21(6MOS UP)/PF 60 MCG/0.5 ML SYRINGE IM ONE (09:00)
== END 2020-07-08 04:00 | disposition home or self-care (01) ==
LOC: L&D/OP 01:43
PROVIDERS: ATTEND Family Medicine
DX: O99.891 Other specified diseases and conditions complicating pregnancy (principal); N89.8 Other specified noninflammatory disorders of vagina; O36.8130 Decreased fetal movements, third trimester, not applicable or unspecified; O09.213 Supervision of pregnancy with history of pre-term labor, third trimester; O09.293 Supervision of pregnancy with other poor reproductive or obstetric history, third trimester; Z3A.34 34 weeks gestation of pregnancy
CPT/HCPCS: 59025; 84112; 99284

== ENCOUNTER 2020-07-11 22:28 | Day surgery (SDC) | payer OTHER ==
[2020-07-11 23:06] VITALS: BMI 26.4
[2020-07-11] MEDS ORDERED: hydrALAZINE 20 MG/ML VIAL SLOW IVP PRN (23:46)
[2020-07-11] MEDS ORDERED: Lactated Ringer's 1,000 ML IV SCH (23:59)
[2020-07-11] MEDS ORDERED: Betamet Acet/Betamet Na Ph 30 MG/5 ML VIAL IM SCH (23:59)
[2020-07-12] MEDS ORDERED: Lactated Ringer's 1,000 ML IV SCH (01:00)
--- NOTE | 2020-07-12 01:40 | PDOC.EVN ---
Event Note - Event Note Event Note: 29 yo WF EDC= 08/14/20 at 35 08/03 presents c/o UCs. Refused evaluation by OB Hospitalist. Dr. Alonso requested I place orders for IV and rescue dose of BMX. No cervical change noted by Labor RN after hydration. DC order placed per Dr. Alonso's request.
== END 2020-07-12 01:55 | disposition home or self-care (01) ==
LOC: L&D/OP 22:28
PROVIDERS: ATTEND Family Medicine
DX: O47.03 False labor before 37 completed weeks of gestation, third trimester (principal); Z3A.35 35 weeks gestation of pregnancy
CPT/HCPCS: 96360; 96361; 96372; 99283; J0702; Q0163

== ENCOUNTER 2020-07-12 22:28 | Day surgery (SDC) | payer OTHER ==
[2020-07-12 23:17] VITALS: BMI 27.3
[2020-07-13] MEDS ORDERED: Acetaminophen 500 MG TAB PO PRN (00:06)
[2020-07-13] MEDS ORDERED: Butorphanol Tartrate 1 MG/ML VIAL SLOW IVP PRN (00:06)
[2020-07-13] MEDS ORDERED: hydrALAZINE 20 MG/ML VIAL SLOW IVP PRN (00:06)
[2020-07-13] MEDS ORDERED: Ondansetron PF 4 MG/2 ML Vial IVP PRN (00:06)
[2020-07-13] MEDS ORDERED: diphenhydrAMINE 25 MG CAP PO PRN (00:11)
[2020-07-13] MEDS ORDERED: Lactated Ringer's 1,000 ML IV SCH (00:15)
--- NOTE | 2020-07-13 07:29 | HP ---
PRIMARY OB: Vargas Alonso MD. CHIEF COMPLAINT: Abdominal pain. HISTORY OF PRESENT ILLNESS: The patient is a 29-year-old G6, P4 female, well known to Labor and Delivery with an intrauterine , now at 35 weeks and 3 days. The patient is presenting with complaints of uterine contractions. She denies leakage of fluid or vaginal bleeding. She has a history of deliveries around 35 weeks. She denies fever, cough, headache, chest pain, shortness of breath. She had some nausea earlier, but was feeling well enough to eat an , chips and soda at the time of our evaluation. She denies diarrhea or constipation, any new rashes, hip problems, knee problems, muscle weakness. She denies vaginal bleeding or leakage of fluid or change in discharge or urinary urgency or frequency. The patient has received steroids earlier in the and the second rescue course completed just in the last few days. PAST MEDICAL HISTORY: Bipolar disorder, anxiety. PAST SURGICAL HISTORY: Appendectomy in 2014. SOCIAL HISTORY: Denies drug, alcohol, or tobacco use. HISTORY: She has 2 deliveries at 35 and 36 weeks, two 37 week deliveries. She has received steroids with this at 32 weeks due to history of labor and with a dilating cervical exam. ALLERGIES: NO KNOWN DRUG ALLERGIES. MEDICATIONS: vitamins. OB LABS: The patient's blood type is B positive. Antibody screen is negative. HIV negative. RPR negative. Hepatitis B surface antigen is negative. She is rubella immune. Drug screen is negative. GC, chlamydia were negative. REVIEW OF SYSTEMS: Per HPI. PHYSICAL EXAMINATION: VITAL SIGNS: Blood pressure 101/56, heart rate of 110, respiratory rate 18, saturating 99% on room air, temperature 98.5. GENERAL: She appears to be in no acute distress. She is alert, oriented, cooperative, and pleasant to interact with. HEAD: Normocephalic, atraumatic. LUNGS: Clear to auscultation bilaterally. HEART: Has a regular rate and rhythm. ABDOMEN: Gravid, soft, nontender to palpation. EXTREMITIES: Nontender, nonedematous. CERVICAL: Per nursing staff is 3.5 cm dilated, 50% effaced, -2 station. heart tracing shows the fetus with a baseline in the 130s with moderate long-term variability, positive 15 x 15 accelerations, no decelerations. Tocometer showing some irritability, difficult to assess frequency of her contractions. ASSESSMENT AND PLAN: Patient is a 29-year-old multiparous female with an intrauterine at 35 weeks and 3 days, and a history of delivery x2, presenting with contractions, and a dilated cervix. Patient will be kept overnight for observation. She has received steroids already, so we will be receiving expectant management. Her primary provider, Dr. Vargas Alonso has been notified and will be assuming care. Job ID: [id number]
== END 2020-07-13 08:05 | disposition home health service (06) ==
LOC: L&D/OP 22:28
PROVIDERS: ATTEND Family Medicine
DX: O47.03 False labor before 37 completed weeks of gestation, third trimester (principal); O09.213 Supervision of pregnancy with history of pre-term labor, third trimester; Z3A.35 35 weeks gestation of pregnancy
CPT/HCPCS: 99283; Q0163

== ENCOUNTER 2020-07-15 16:57 | Day surgery (SDC) | payer OTHER ==
[2020-07-15 17:26] VITALS: TEMP 98.3; BMI 25.7
[2020-07-15] MEDS ORDERED: hydrALAZINE 20 MG/ML VIAL SLOW IVP PRN (19:26)
[2020-07-15] MEDS ORDERED: Lactated Ringer's 1,000 ML IV SCH (19:30)
--- NOTE | 2020-07-15 19:33 | PDOC.FPROB ---
FMR OB H&P: HPI - History of Present Illness Chief Complaint: vaginal discharge Indentification: 29yo @36.5 History of Present Illness: 29yo @36.5, patient of Dr. Alonso, who presents for vaginal discharge. Was diagnosed with BV in past weeks, declined treatment. Had SVE in PCP office yesterday, was 3.5cm, unchanged from previous checks. This morning has had 2 episodes of thick, brown discharge. No ctx/cramping. No bright red vaginal bleeding. No LOF. No [place]/vision changes, SOB, CP, n/v. Tolerating PO well. Denies history of STDs, no recent sexual intercourse or new partners. Endorses good movement. Primary Care Physician: Gavin FMR OB H&P: Current - Care : 6 Para: 4014 Gestational age: 36.5 Due date: 08/14/20 - OB Labs Blood type: B RH: positive Antibody Screen: negative HIV: negative RPR: negative HepBsAg: negative Rubella: immune Urine drug screen: negative Gonorrhea: negative Chlamydia: negative FMR OB H&P: History - Past Medical History PMH: Denies - OB History OB History: Denies any complications in previous pregnancies. States daughter who was born last year required resuscitation at but did not require NICU stay and has no developmental delays. Denies any DM and HTN in prior pregnancies. - TREASURER History TREASURER History: Denies history of STDs - Surgical History Sx History: appendectomy - Social History Social History: Denies tob, etoh, illicits. - Family History Family History: Denies FMR OB H&P: Medications - Current Home Medications: Medication Instructions Recorded Confirmed Type Pnv No.95/Ferrous Fum/Folic AC 1 tablet PO DAILY #90 tablet 05/04/19 07/12/20 Rx [ Tablet] Acetaminophen [Tylenol Extra 1,000 mg PO Q6HR PRN 06/16/20 07/12/20 History Strength] Allergies/Adverse Reactions: Allergies Allergy/AdvReac Type Severity Reaction Status Date / Time No Known Allergies Allergy Verified 07/12/20 23:22 FMR OB H&P: ROS - Review of Systems General: denies: fever/chills, fatigue Eyes: denies: vision changes, double vision, scotomas ENT: denies: nasal congestion, sore throat Cardiovascular: denies: palpitation, edema Respiratory: denies: cough, congestion, shortness of breath Gastrointestinal: denies: abdominal pain, nausea, vomiting Genitourinary (Female): reports: vaginal discharge. denies: dysuria, vaginal bleeding, contractions Musculoskeletal: denies: pain, tenderness Neurologic: denies: syncope Integumentary: denies: rash FMR OB H&P: Vital Signs - Maternal Vital signs: Vital Signs - First Documented Temp 98.3 F 07/15/20 17:01 HR 115, 97% on RA, 102/61 - Heart Tones Baseline: 130 (Unable to obtain full 20min NST to interperet. ) Variability: moderate Acceleration: present [place] contractions every: None FMR OB H&P: Physical Exam - Physical Exam General: NAD, awake, alert and oriented HEENT: PERRLA, EOMI Neck: supple, trachea midline Heart: RRR, normal S1/S2, no murmurs/rubs/gallops, no edema General: CTAB, no respiratory distress, good air movement, no rales/rhonchi, no wheezing Abdomen: soft, gravid, non-tender, bowel sound present Musculoskeletal: FROM in all four extremities Neurological: no focal deficit Psychiatric: intact recent and remote memory, good judgement and insight, normal mood and affect - Pelvic Exam SVE: 3.5 FMR OB H&P: A/P - Problem List (1) Vaginal discharge Current Visit: No Status: Acute Code(s): N89.8 - OTHER SPECIFIED NONINFLAMMATORY DISORDERS OF VAGINA Disposition: 29yo @36.5, patient of Dr. Alonso, who presents for vaginal discharge. #, SIUP, vaginal discharge - History of untreated BV due to patient preference - SVE yesterday in office was 3.5cm - 2 episodes brown discharge today - NST unable to obtain full 20min strip, will obtain BPP - Maternal tachycardia, no signs of infection, recommended 1L LR fluid bolus, patient declined - SVE today 3.5 by RN, unchanged PCP: Gavin Dispo: Vaginal discharge likely 2/2 BV and recent SVE. SVE unchanged. Will obtain BPP since unable to obtain NST. Offered IVF, but patient declined. No signs of active labor. Dispo pending BPP. Discussion: Date/Time: 07/15/201928 This H&P was discussed with Dr. Lagos who agrees with the above documentation and plan.
--- NOTE | 2020-07-15 19:59 | HP ---
TIME OF EVALUATION: Roughly 1915 hours. LOCATION: Labor and Delivery Triage. Patient of Dr. Alonso. CHIEF COMPLAINT: Vaginal discharge, which is brown and thick, but rare contractions. GESTATIONAL AGE: 36 weeks and 5 days. HISTORY OF PRESENT ILLNESS: This is a 29-year-old, G6, P4, with previous term vaginal deliveries according to the chart, who sees Dr. Alonso for care. She has been in Labor and Delivery for other evaluations including possible contractions and similar discharge, for which she has been diagnosed with bacterial vaginosis. She states that she does not like taking antibiotics and has not been treated for the bacterial vaginosis. She denies any recent sexual intercourse. She denies vaginal bleeding or leakage of fluid concerning for ruptured membranes. She has rare contractions and she has good movement. REVIEW OF SYSTEMS: GENERAL: She denies recent trauma or sick contacts. PULMONARY: No shortness of breath. CHEST: No chest pain. GI: No extreme diarrhea or constipation. EXTREMITIES: Denies lower extremity swelling or pain. OBSTETRICAL HISTORY: She has had previous vaginal deliveries x4, in the chart says term, although she states that they were , but not rectified or reconciled this difference. PAST MEDICAL HISTORY: Negative. MEDICATIONS: vitamins. ALLERGIES: NONE. PAST SURGICAL HISTORY: Noncontributory. PHYSICAL EXAMINATION: VITAL SIGNS: Her blood pressure is 102/61, pulse is 113, and temperature is 98.3. GENERAL: She is in no acute distress. ABDOMEN: Soft and nontender. PELVIC: Currently pending by Dr. Stewart, but by evaluation, there is no gross evidence of bleeding or leakage of fluid. EXTERNAL MONITOR: The heart tracing was around 140 to 150 with moderate variability and accelerations. There are periods that are not traceable and this because the patient is moving. Because those areas are not interpretable, I have suggested a biophysical profile just to complete the evaluation. ASSESSMENT: This is a 29-year-old, G6, P4, at 36 weeks and 5 days with vaginal discharge. It is important to note that she was checked in the office yesterday by Dr. Alonso and she was called around 4 cm dilation, so some of the brown discharge may be from cervical blood/mucus from this exam. I do not feel that she is actively having labor at this time. PLAN: 1. Labor observation. 2. Check cervix. 3. Biophysical profile if the heart tracing continues to have areas that are indeterminate due to the patient movement. 4. She has a history of discharge, but she already has a known history of bacterial vaginosis, for which she has declined medical therapy. ADDENDUM: Patient has declined vag exam and further eval. I have seen her and discussed these with her. Job ID: [id number] MTDD
--- NOTE | 2020-07-15 20:06 | PDOC.BPN ---
- Brief Progress Note Encounter Date: 07/15/20 Encounter Time: 20:06 SVE unchanged. No ctx. FHT with baseline 140, no accels or deccels. Discussed with patient and offered BPP for reassurance. Patient declined BPP. Patient would like RX for flagyl for untreated BV, will send in. Patient eager for discharge home. Discharged home with labor precautions and to follow up with PCP next week. All questions answered.
== END 2020-07-15 20:10 | disposition home or self-care (01) ==
LOC: L&D/OP 16:57
PROVIDERS: ATTEND Family Medicine
DX: O23.593 Infection of other part of genital tract in pregnancy, third trimester (principal); B96.89 Other specified bacterial agents as the cause of diseases classified elsewhere; Z3A.36 36 weeks gestation of pregnancy
CPT/HCPCS: 99283

== ENCOUNTER 2020-07-18 08:57 | Inpatient (IN) | payer OTHER ==
[2020-07-18 09:37] VITALS: BMI 26.4
[2020-07-18] MEDS ORDERED: HYDROcodone/Acetaminophen 5/325 mg Tablet PO PRN ×4 (09:40→17:07)
[2020-07-18] MEDS ORDERED: Ondansetron PF 4 MG/2 ML Vial IVP PRN ×3 (09:40→17:07)
[2020-07-18] MEDS ORDERED: hydrALAZINE 20 MG/ML VIAL SLOW IVP PRN ×2 (09:40→17:07)
[2020-07-18] MEDS ORDERED: Acetaminophen 500 MG TAB PO PRN (09:40)
[2020-07-18] MEDS ORDERED: Butorphanol Tartrate 1 MG/ML VIAL SLOW IVP PRN (09:40)
[2020-07-18] MEDS ORDERED: NS / Oxytocin 40 units/1000ml 1,000 ML IV PRN (09:40)
[2020-07-18] MEDS ORDERED: Ibuprofen 800 MG TAB PO PRN (09:40)
[2020-07-18] MEDS ORDERED: Promethazine HCl 25 MG/ML VIAL IM PRN ×3 (09:40→17:07)
[2020-07-18] MEDS ORDERED: Lidocaine 1% (PF) 30 ML VIAL SC PRN (09:40)
[2020-07-18] MEDS ORDERED: Lactated Ringer's 1,000 ML IV SCH ×2 (09:45)
[2020-07-18 10:10] LABS: Hemoglobin 9.3 g/dL (12.0-16.0); Mean Corpuscular HGB CONC 33.7 g/dL (32.0-36.0); Mean Corpuscular Hemoglobin 28.9 pg (27.0-31.0); Mean Corpuscular Volume 85.7 fL (78.0-98.0); Mean Platelet Volume 6.9 fL (7.4-10.4); Platelet Count 240 thou/uL (130-400); Red Blood Cell (RBC) Count 3.22 mill/uL (4.20-5.40); White Blood Cell (WBC) Count 8.8 thou/uL (4.8-10.8)
[2020-07-18] MEDS ORDERED: Bupivacaine 0.5% 20 ML, fentaNYL Citrate/PF 400 MCG in Sodium Chloride 0.9% 72 ML EPIDURAL SCH (10:30)
[2020-07-18] MEDS ORDERED: DISCONTINUE ALL PREVIOUS NARCOTICS FS SCH (10:30)
[2020-07-18 10:50] LABS: HBSAg Index 0.19 S/CO (0-0.99); Hep B Surf Ag Non-Reactive S/CO (NonReactive); Syphilis Antibody Nonreactive (Nonreactive); Syphilis Antibody Index 0.02 S/CO (<1.00 Non-Reactive)
[2020-07-18] MEDS ORDERED: Bupivacaine 0.25% HCL 30 ML VIAL ONE (11:12)
[2020-07-18] MEDS ORDERED: Sodium Chloride 0.9% (PF) 10 ML VIAL ONE (11:12)
[2020-07-18] MEDS ORDERED: ePHEDrine 50 MG/ML VIAL SLOW IVP PRN (11:44)
[2020-07-18] MEDS ORDERED: Naloxone HCl 0.4 mg/ml Vial IVP PRN ×2 (11:44)
[2020-07-18] MEDS ORDERED: diphenhydrAMINE 50 MG/ML VIAL IVP PRN (11:44)
[2020-07-18] MEDS ORDERED: Acetaminophen 325 MG TAB PO PRN (11:44)
[2020-07-18] MEDS ORDERED: Lactated Ringer's 500 ML IV PRN (11:44)
[2020-07-18] MEDS ORDERED: Communication Order-Pharmacy FS SCH (11:45)
[2020-07-18] MEDS ORDERED: Fentanyl 4 mcg/Bupivacaine 0.1% Cassette 100 ML EPIDURAL SCH (11:45)
[2020-07-18] MEDS ORDERED: AMPicillin 1 GM in Sodium Chloride 0.9% 100 ML IVPB SCH (14:00)
[2020-07-18] MEDS ORDERED: Milk Of Magnesia 30 ML UDCUP PO PRN (17:07)
[2020-07-18] MEDS ORDERED: diphenhydrAMINE 25 MG CAP PO PRN (17:07)
[2020-07-18] MEDS ORDERED: Adacel (T-DAP) 0.5 ML SYRINGE IM ONE (17:07)
[2020-07-18] MEDS ORDERED: Benzocaine-Menthol 82.5 ML CAN TOP PRN (17:07)
[2020-07-18] MEDS ORDERED: Bisacodyl 10 MG SUPP PR PRN (17:07)
[2020-07-18] MEDS ORDERED: Lanolin Ointment 7 GM TUBE TOP PRN (17:07)
[2020-07-18] MEDS ORDERED: NS w/ Oxytocin 30 units 500 ML IVPB SCH (17:15)
[2020-07-18] MEDS: Ferrous Sulfate 325 MG TAB PO SCH (18:43)
[2020-07-18 20:23] LABS: SARS-CoV-2 MS2 Positive; SARS-CoV-2 N Gene Negative; SARS-CoV-2 S Gene Negative; SARS-CoV-2 by NAA Not Detected (NotDetected); SARS-CoV-2 orf1ab Negative
[2020-07-19] MEDS: Docusate Calcium (SURFAK) 240 MG CAP PO SCH ×2 (02:52→08:05)
[2020-07-19] MEDS: Ibuprofen 800 MG TAB PO SCH ×3 (02:52→14:22)
[2020-07-19] MEDS: Ferrous Sulfate 325 MG TAB PO SCH (08:05)
[2020-07-19] MEDS ORDERED: FLU VACC QS2020-21(6MOS UP)/PF 60 MCG/0.5 ML SYRINGE IM ONE (09:00)
[2020-07-19] MEDS ORDERED: Prenatal Vitamin 1 TAB PO SCH (09:00)
[2020-07-19 11:39] VITALS: BP 100/59; TEMP 98.2
== END 2020-07-19 17:20 | disposition home or self-care (01) | DRG 805 ==
LOC: L&D/OP 08:57 → L&D 14:06 → 3SE 18:48
PROVIDERS: ADMIT Family Medicine; ATTEND Family Medicine
PROC: 10E0XZZ Delivery of Products of Conception, External Approach (ICD-10-PCS; principal; 2020-07-18)
DX: O42.913 Preterm premature rupture of membranes, unspecified as to length of time between rupture and onset of labor, third trimester (principal); O60.13X0 Preterm labor second trimester with preterm delivery third trimester, not applicable or unspecified; Z37.0 Single live birth; Z3A.36 36 weeks gestation of pregnancy; Z20.828 Contact with and (suspected) exposure to other viral communicable diseases
CPT/HCPCS: 51702; 85027; 86780; 86850; 86900; 86901; 87340; 87635; 88307; 99285; J0290; J1200; J3010; J3490; J7070; Q0163; S0020; U0003